=== PATIENT | male | born 1985 | race Caucasian/White ===

== ENCOUNTER 2018-11-16 00:35 | Emergency (ER) | payer SELFPAY ==
[~2018-11-16] VITALS: Ht 157.5 cm; Wt 74.8 kg
[2018-11-16 00:37] VITALS: Ht 157.5 cm; Wt 74.8 kg
[2018-11-16 08:29] VITALS: BP 130/96
== END 2018-11-16 08:09 | disposition home or self-care (01) ==
LOC: ED 00:35
DX: F17.210 Nicotine dependence, cigarettes, uncomplicated (principal)
CPT/HCPCS: J2060